=== PATIENT | female | born 1970 | race African-American/Black ===

== ENCOUNTER 2016-09-23 19:59 | Emergency (ER) | payer OTHER ==
[2016-09-23 20:09] VITALS: TEMP 98.6; BMI 33.6
--- NOTE | 2016-09-23 20:18 | PDOC ---
History of Present Illness - General Chief Complaint: Allergic Reaction Stated Complaint: ALLERGIC REACTION Time Seen by Provider: 09/23/16 20:14 Past History - Past Medical History Allergies/Adverse Reactions: Allergies Allergy/AdvReac Type Severity Reaction Status Date / Time sulfamethoxazole Allergy Swelling Verified 09/23/16 20:09 [From Bactrim] tomato [Tomato] Allergy Verified 09/23/16 20:09 trimethoprim [From Bactrim] Allergy Swelling Verified 09/23/16 20:09 wheat Allergy Swelling Verified 09/23/16 20:09 ALL FRUITS Allergy Swelling Uncoded 09/23/16 20:09 LETTUCE Allergy Uncoded 09/23/16 20:09 Home Medications: Ambulatory Orders Levothyroxine [Synthroid] 88 mcg PO DAILY 02/13/12 Methotrexate Sodium [Methotrexate] 2.5 mg PO WEEKLY 02/13/12 Folic Acid - 1 mg PO DAILY 11/04/12 Nabumetone 750 mg PO BID 11/04/12 Tramadol HCl/APAP 37.5/325Mg [Ultracet 37.5/325Mg Tablet] 1 combo PO PRN Etanercept [Enbrel] 50 mg SQ WEEKLY 11/28/14 Loratadine [Claritin -] 10 mg PO DAILY PRN 11/29/14 Ibuprofen [Motrin -] 800 mg PO Q6H #30 tablet 01/15/16 Asthma: Yes Cardiac Disorders: Yes (right lower extremity DVT in 2007 and 2009, 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) CVA: No CHF: No DVT: Yes Dementia: No Diabetes: No GI Disorders: No Disorders: No HTN: No Hypercholesterolemia: No Liver Disease: No Seizures: No Thyroid Disease: Yes (hypo) - Surgical History Abdominal Surgery: Yes (tubal ligation) - Psycho/Social/Smoking Cessation Hx Anxiety: No Suicidal Ideation: No Smoking Status: No Smoking History: Never smoked Have you smoked in the past 12 months: No Number of Cigarettes Smoked Daily: 0 Hx Alcohol Use: No Drug/Substance Use Hx: No Substance Use Type: None *Physical Exam - Vital Signs Last Vital Signs Temp Pulse Resp BP Pulse Ox 98.6 F 77 18 154/82 99 09/23/16 20:06 09/23/16 20:06 09/23/16 20:06 09/23/16 20:06 09/23/16 20:06
--- NOTE | 2016-09-23 20:18 | PDOC ---
History of Present Illness - History of Present Illness Initial Comments: 09/23/16 20:48 The patient is a 46 year old female with a past medical hx of RA, asthma, hypothyroidism who presents to the ED for evaluation of an allergic reaction this evening. The patient states she ate fruit and started to have an allergic reaction. She reports an itchy rash all over her body. She states she took 2 Benadryl before coming to the ED. The patient denies SOB, wheezing, cough, vomiting, nausea Allergies: All fruits <Carmina Fuentes - Last Filed: 09/23/16 21:01> <Idalmis López - Last Filed: 09/23/16 21:29> - General Chief Complaint: Allergic Reaction Stated Complaint: ALLERGIC REACTION Time Seen by Provider: 09/23/16 20:14 Past History <Carmina Fuentes - Last Filed: 09/23/16 21:01> - Past Medical History Asthma: Yes Cardiac Disorders: Yes (right lower extremity DVT in 2007 and 2009, 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) CVA: No CHF: No DVT: Yes Dementia: No Diabetes: No GI Disorders: No Disorders: No HTN: No Hypercholesterolemia: No Liver Disease: No Seizures: No Thyroid Disease: Yes (hypo) - Surgical History Abdominal Surgery: Yes (tubal ligation) - Psycho/Social/Smoking Cessation Hx Anxiety: No Suicidal Ideation: No Smoking Status: No Smoking History: Never smoked Have you smoked in the past 12 months: No Number of Cigarettes Smoked Daily: 0 Hx Alcohol Use: No Drug/Substance Use Hx: No Substance Use Type: None <Idalmis López - Last Filed: 09/23/16 21:29> - Past Medical History Allergies/Adverse Reactions: Allergies Allergy/AdvReac Type Severity Reaction Status Date / Time sulfamethoxazole Allergy Swelling Verified 09/23/16 20:09 [From Bactrim] tomato [Tomato] Allergy Verified 09/23/16 20:09 trimethoprim [From Bactrim] Allergy Swelling Verified 09/23/16 20:09 wheat Allergy Swelling Verified 09/23/16 20:09 ALL FRUITS Allergy Swelling Uncoded 09/23/16 20:09 LETTUCE Allergy Uncoded 09/23/16 20:09 Home Medications: Ambulatory Orders Levothyroxine [Synthroid] 88 mcg PO DAILY 02/13/12 Methotrexate Sodium [Methotrexate] 2.5 mg PO WEEKLY 02/13/12 Folic Acid - 1 mg PO DAILY 11/04/12 Nabumetone 750 mg PO BID 11/04/12 Tramadol HCl/APAP 37.5/325Mg [Ultracet 37.5/325Mg Tablet] 1 combo PO PRN Etanercept [Enbrel] 50 mg SQ WEEKLY 11/28/14 Loratadine [Claritin -] 10 mg PO DAILY PRN 11/29/14 Ibuprofen [Motrin -] 800 mg PO Q6H #30 tablet 01/15/16 Review of Systems - Review of Systems Able to Perform ROS?: Yes Comments:: 09/23/16 20:50 CONSTITUTIONAL: Absent: fever, no chills, no fatigue EYES: Absent: visual changes ENT: Absent: ear pain, no sore throat CARDIOVASCULAR: Absent: chest pain, no palpitations RESPIRATORY: Absent: cough, no SOB GI: Absent: abdominal pain, no nausea, no vomiting, no constipation, no diarrhea GENITOURINARY: Absent: dysuria, no frequency, no hematuria MUSCULOSKELETAL: Absent: back pain, no arthralgia, no myalgia SKIN: +Itchy rash NEURO: Absent: headache <Carmina Fuentes - Last Filed: 09/23/16 21:01> *Physical Exam - Vital Signs Last Vital Signs Temp Pulse Resp BP Pulse Ox 98.6 F 77 18 154/82 99 09/23/16 20:06 09/23/16 20:06 09/23/16 20:06 09/23/16 20:06 09/23/16 20:06 - Physical Exam Comments: 09/23/16 20:50 GENERAL: Well-appearing, well-nourished. No apparent distress. HEENT: Uvula midline. Normocephalic, atraumatic. PERRL, EOM intact. CARDIOVASCULAR: Normal S1, S2. Regular rate and rhythm. PULMONARY: No wheezing. Clear to auscultation bilaterally. ABDOMEN: Soft, non-distended, non-tender. EXTREMITIES: Normal ROM in all four extremities. No gross deformities. SKIN: +Hives to face and extremities. Warm, dry. NEUROLOGICAL: No focal neurological deficits. <Carmina Fuentes - Last Filed: 09/23/16 21:01> - Vital Signs Last Vital Signs Temp Pulse Resp BP Pulse Ox 98.6 F 77 18 154/82 99 09/23/16 20:06 09/23/16 20:06 09/23/16 20:06 09/23/16 20:06 09/23/16 20:06 <Idalmis López - Last Filed: 09/23/16 21:29> ED Treatment Course - Medications Given in the ED: ED Medications Discontinued Medications Generic Name Dose Route Start Last Admin Trade Name Ezequiel PRN Reason Stop Dose Admin Diphenhydramine HCl 25 mg 09/23/16 20:20 09/23/16 20:46 Benadryl Injection - IVPUSH 09/23/16 20:21 25 mg ONCE ONE Administration Famotidine/Sodium Chloride 50 mls @ 100 mls/hr 09/23/16 20:19 09/23/16 20:46 Pepcid 20 Mg Premixed Ivpb - IVPB 09/23/16 20:48 100 mls/hr ONCE ONE Administration Methylprednisolone Sodium Succinate 125 mg 09/23/16 20:19 09/23/16 20:46 Solu-Medrol - IVPB 09/23/16 20:20 125 mg ONCE ONE Administration <Carmina Fuentes - Last Filed: 09/23/16 21:01> Medical Decision Making - Medical Decision Making 09/23/16 21:24 46-year-old female with a history of allergies had wheezes today and developed itching to her torso, face and extremities -She has no focal neural deficits. She has no wheezing. She has no oropharynx edema. The uvula is midline. Patient received IV Benadryl, IV steroids Symptoms improved Patient states that she does have an EpiPen at home and does not need another prescription Impression food allergies, hives <Idalmis López - Last Filed: 09/23/16 21:29> *DC/Admit/Observation/Transfer - Attestations Scribe Attestion: 09/23/16 20:51 Documentation prepared by Carmina Fuentes, acting as medical videographer for Idalmis López MD/DO. <Carmina Fuentes - Last Filed: 09/23/16 21:01> <Idalmis López - Last Filed: 09/23/16 21:29> Diagnosis at time of Disposition: Drug allergy - Discharge Dispostion Disposition: HOME Condition at time of disposition: Stable - Referrals Referrals: Haydee Gilmore MD [Primary Care Provider] - - Patient Instructions Printed Discharge Instructions: DI for Food Allergy Additional Instructions: Please avoid fruit If you ever experience difficulty breathing after exposure to foods-inject your epi pen Return to the ER if you have any recurrent symptoms
[2016-09-23] MEDS ORDERED: FAMOTIDINE 20 MG/50 ML IVPB 50 ML IVPB ONE ×2 (20:19→20:37)
[2016-09-23] MEDS ORDERED: methylPREDNISolone NA SUCC 125 MG/2 ML VIAL IVPB ONE (20:19)
[2016-09-23] MEDS ORDERED: methylPREDNISolone NA SUCC 125 MG/2 ML VIAL ONE ×2 (20:37→20:38)
[2016-09-23 22:00] VITALS: BP 145/76; PULSE 72
== END 2016-09-23 22:01 | disposition home or self-care (01) ==
LOC: JER 19:59
PROC: 3E033GC Introduction of Other Therapeutic Substance into Peripheral Vein, Percutaneous Approach (ICD-10-PCS; principal; 2016-09-23)
PROC: 3E0333Z Introduction of Anti-inflammatory into Peripheral Vein, Percutaneous Approach (ICD-10-PCS; 2016-09-23)
PROC: 3E033GC Introduction of Other Therapeutic Substance into Peripheral Vein, Percutaneous Approach (ICD-10-PCS; 2016-09-23)
DX: L27.2 Dermatitis due to ingested food (principal); T78.1XXA Other adverse food reactions, not elsewhere classified, initial encounter; M06.9 Rheumatoid arthritis, unspecified; J45.909 Unspecified asthma, uncomplicated; E03.9 Hypothyroidism, unspecified; Z86.718 Personal history of other venous thrombosis and embolism
CPT/HCPCS: 96365; 96375; 99283-25

== ENCOUNTER 2017-08-04 09:09 | Emergency (ER) | payer OTHER ==
[2017-08-04 09:16] VITALS: TEMP 98.4; BMI 32.4
[2017-08-04] MEDS ORDERED: SODIUM CHLORIDE 1,000 ML IV STA (09:53)
[2017-08-04] MEDS ORDERED: ONDANSETRON 4 MG/2 ML VIAL ONE (09:53)
[2017-08-04] MEDS ORDERED: ONDANSETRON 4 MG/2 ML VIAL IVPUSH ONE (09:53)
[2017-08-04] MEDS ORDERED: ACETAMINOPHEN 1000 MG/100 ML VIAL (NON FORMULARY) IVPB ONE (09:53)
[2017-08-04] MEDS ORDERED: ACETAMINOPHEN INJECTION 100 ML IVPB ONE (09:53)
[2017-08-04 10:29] LABS: HCG,QUALITATIVE URINE NEGATIVE
[2017-08-04 10:38] LABS: ALBUMIN 3.3 g/dl (3.4-5.0); ALK PHOS 76 U/L (45-117); ANION GAP 7 (8-16); BILIRUBIN,TOTAL 0.4 mg/dL (0.2-1.0); BLOOD UREA NITROGEN 5 mg/dL (7-18); CALCIUM 8.2 mg/dL (8.5-10.1); CHLORIDE 105 mmol/L (98-107); CO2 26 mmol/L (21-32); CREATININE 0.8 mg/dL (0.55-1.02); GLUCOSE,RANDOM 86 mg/dL (74-106); LIPASE 65 U/L (73-393); MAGNESIUM 2.1 mg/dL (1.8-2.4); POTASSIUM 3.8 mmol/L (3.5-5.1); SGOT/AST 24 U/L (15-37); SGPT/ALT 27 U/L (12-78); SODIUM 138 mmol/L (136-145); TOT PROT 7.2 g/dl (6.4-8.2)
--- NOTE | 2017-08-04 10:45 | PDOC ---
History of Present Illness - General Chief Complaint: Headache Stated Complaint: HEADACHE Time Seen by Provider: 08/04/17 09:25 History Source: Patient Exam Limitations: No Limitations - History of Present Illness Travel History: No Initial Comments: 08/04/17 10:00 47 year old female presents to the ED with complaints of nausea vomiting and generalized abdominal cramping for the past 2 days. Patient states at work there was an outbreak of similar symptoms involving the staff and patients. Patient states at work started to vomit and since then has had poor appetite, generalized weakness and now has developed a generalized headache which she describes a throbbing sensation. Patient denies visual changes, fever but states that have chills yesterday. Patient states has had no diarrhea, change in urine pattern, rash, or dizziness. Timing/Duration: reports: changing over time Quality: reports: moderate Abdominal Pain Onset Location: reports: generalized abdomen Pain Radiation: reports: no radiation Aggravating Factors: improves with: Eating Alleviating Factors: improves with: Vomiting Past History - Travel Traveled outside of the country in the last 30 days: No - Past Medical History Allergies/Adverse Reactions: Allergies Allergy/AdvReac Type Severity Reaction Status Date / Time sulfamethoxazole Allergy Swelling Verified 08/04/17 09:11 [From Bactrim] tomato [Tomato] Allergy Verified 08/04/17 09:11 trimethoprim [From Bactrim] Allergy Swelling Verified 08/04/17 09:11 wheat Allergy Swelling Verified 08/04/17 09:11 ALL FRUITS Allergy Swelling Uncoded 08/04/17 09:11 LETTUCE Allergy Uncoded 08/04/17 09:11 Home Medications: Ambulatory Orders Levothyroxine [Synthroid] 100 mcg PO DAILY 02/13/12 Methotrexate Sodium [Methotrexate] 10 mg PO WEEKLY 02/13/12 Folic Acid - 1 mg PO DAILY 11/04/12 Etanercept [Enbrel] 50 mg SQ WEEKLY 11/28/14 Loratadine [Claritin -] 10 mg PO DAILY PRN 11/29/14 Ibuprofen [Motrin -] 800 mg PO Q6H #30 tablet 01/15/16 Asthma: Yes Cardiac Disorders: Yes (right lower extremity DVT in 2007 and 2009, V. 2010 DVT associated with pre) CVA: No COPD: No CHF: No DVT: Yes Dementia: No Diabetes: No GI Disorders: No Disorders: No HTN: No Hypercholesterolemia: No Liver Disease: No Seizures: No Thyroid Disease: Yes (hypo) Other medical history: R.A - Surgical History Abdominal Surgery: Yes (tubal ligation) - Suicide/Smoking/Psychosocial Hx Smoking Status: No Smoking History: Never smoked Have you smoked in the past 12 months: No Number of Cigarettes Smoked Daily: 0 Information on smoking cessation initiated: No Hx Alcohol Use: No Drug/Substance Use Hx: No Substance Use Type: None Patient Lives Alone: No Review of Systems - Review of Systems Able to Perform ROS?: Yes Constitutional: Yes: Chills, Weakness HEENTM: No: Symptoms Reported Respiratory: No: Symptoms reported Cardiac (ROS): No: Symptoms Reported ABD/GI: Yes: Nausea, Poor Appetite, Poor Fluid Intake, Vomiting, Abdominal cramping : No: Symptoms Reported Musculoskeletal: No: Symptoms Reported Integumentary: No: Symptoms Reported Neurological: Yes: Headache *Physical Exam - Vital Signs Last Vital Signs Temp Pulse Resp BP Pulse Ox 98.4 F 67 18 130/84 100 08/04/17 09:13 08/04/17 09:13 08/04/17 09:13 08/04/17 09:13 08/04/17 09:13 - Physical Exam General Appearance: Yes: Nourished, Appropriately Dressed. No: Apparent Distress HEENT: positive: EOMI, GEMMA, TMs Normal, Pharynx Normal. negative: Pale Conjunctivae Neck: positive: Supple Respiratory/Chest: positive: Lungs Clear, Normal Breath Sounds. negative: Respiratory Distress, Accessory Muscle Use Cardiovascular: positive: Regular Rhythm, Regular Rate. negative: Murmur Gastrointestinal/Abdominal: positive: Soft, Tenderness (mild epigastric. no right upper quadrant or lower quadrant involvement) Extremity: positive: Normal Capillary Refill Integumentary: positive: Normal Color, Warm, Moist Neurologic: positive: Normal Mood/Affect, Motor Strength 5/5 (ambulatory) ED Treatment Course - LABORATORY CBC & Chemistry Diagram: 08/04/17 10:03 08/04/17 10:03 - ADDITIONAL ORDERS Additional order review: Laboratory Results 08/04/17 10:03 Urine HCG, Qual Negative - Medications Given in the ED: ED Medications Discontinued Medications Generic Name Dose Route Start Last Admin Trade Name Freq PRN Reason Stop Dose Admin Acetaminophen 1,000 mg 08/04/17 09:53 08/04/17 10:03 Ofirmev Injection - IVPB 08/04/17 09:54 1,000 mg ONCE ONE Administration Ondansetron HCl 4 mg 08/04/17 09:53 08/04/17 10:03 Zofran Injection IVPUSH 08/04/17 09:54 4 mg ONCE ONE Administration Medical Decision Making - Medical Decision Making 08/04/17 10:00 Patient with GI complaints including subjective chills along with a headache 2 days. Patient states poor by mouth intake and generalized weakness. Patient ordered for labs including CBC, comp, mag, lipase, urinalysis, urine , IV Zofran, IV Tylenol along with IV fluids. DD: gastroenteritis, gastritis, cholecystitis, UTI, 08/04/17 11:33 Laboratory Tests 08/04/17 08/04/17 08/04/17 10:03 10:03 10:03 WBC 2.3 L D Hgb 13.3 D Hct 40.8 Plt Count 166 D Neutrophils % 54.5 D Sodium 138 Potassium 3.8 Chloride 105 Carbon Dioxide 26 Anion Gap 7 L BUN 5 L Creatinine 0.8 Random Glucose 86 Calcium 8.2 L Magnesium 2.1 AST 24 ALT 27 Lipase 65 L Urine Ketones Negative Urine Blood 2+ H Urine HCG, Qual Negative patient states feeling better. Pt to be discharged home with Zofran, recommending to follow a bland diet for the next few days. *DC/Admit/Observation/Transfer Diagnosis at time of Disposition: Nausea & vomiting - Discharge Dispostion Disposition: HOME Condition at time of disposition: Improved - Referrals - Patient Instructions Printed Discharge Instructions: DI for Vomiting -- Adult Additional Instructions: Please follow a bland diet x 2 days and advance as you can tolerate. Take Zofran as needed for nausea. Return to ED if symptoms worsen. Otherwise follow up with your PMD - Post Discharge Activity
[2017-08-04 10:52] LABS: URINE APPEARANCE CLEAR; URINE BILIRUBIN NEGATIVE (NEGATIVE); URINE BLOOD 2+ (NEGATIVE); URINE COLOR STRAW; URINE GLUCOSE (UA) NEGATIVE (NEGATIVE); URINE KETONE NEGATIVE (NEGATIVE); URINE LEUK ESTERASE NEGATIVE (NEGATIVE); URINE NITRITE NEGATIVE (NEGATIVE); URINE PROTEIN NEGATIVE (NEGATIVE); URINE UROBILINOGEN NEGATIVE mg/dL (0.2-1.0)
[2017-08-04 11:07] LABS: BASO % 0.2 % (0-2.0); HEMATOCRIT 40.8 % (32.4-45.2); HEMOGLOBIN 13.3 GM/dL (10.7-15.3); LYMPH % 33.2 % (8-40); MCH 29.1 pg (25.7-33.7); MCHC 32.7 g/dl (32.0-36.0); MEAN CELL VOLUME 88.9 fl (80-96); MEAN PLT VOLUME 9.8 fl (7.5-11.1); MONO % 9.1 % (3.8-10.2); NEUT % 54.5 % (42.8-82.8); PLATELET COUNT 166 K/MM3 (134-434); RBC 4.58 M/mm3 (3.60-5.2); RDW 13.8 % (11.6-15.6); WHITE BLOOD COUNT 2.3 K/mm3 (4.0-10.0)
[2017-08-04 11:09] LABS: EPI CELLS RARE /HPF (FEW)
[2017-08-04 11:45] VITALS: BP 117/55; PULSE 58
== END 2017-08-04 11:45 | disposition home or self-care (01) ==
LOC: JER 09:09
PROC: 3E033NZ Introduction of Analgesics, Hypnotics, Sedatives into Peripheral Vein, Percutaneous Approach (ICD-10-PCS; principal; 2017-08-04)
PROC: 3E033GC Introduction of Other Therapeutic Substance into Peripheral Vein, Percutaneous Approach (ICD-10-PCS; 2017-08-04)
DX: R11.2 Nausea with vomiting, unspecified (principal); J45.909 Unspecified asthma, uncomplicated; E03.9 Hypothyroidism, unspecified; M06.9 Rheumatoid arthritis, unspecified; Z86.718 Personal history of other venous thrombosis and embolism
CPT/HCPCS: 36415; 80053; 81003; 81015; 83690; 83735; 84703; 85025; 96374; 96375; 99283-25

== ENCOUNTER 2021-01-18 12:29 | Emergency (ER) | payer OTHER ==
[2021-01-18 12:42] VITALS: BP 158/100; PULSE 69; BMI 31.8
[2021-01-18] MEDS ORDERED: CEFTRIAXONE 500 MG in DEXTROSE 5%-WATER - 50 ML IVPB ONE (13:19)
[2021-01-18] MEDS ORDERED: AZITHROMYCIN 500 MG TABLET PO ONE (13:19)
[2021-01-18] MEDS ORDERED: AZITHROMYCIN 250 MG TABLET ONE (13:25)
[2021-01-18 13:38] LABS: HCG,QUALITATIVE URINE Negative
[2021-01-18 13:44] LABS: EPI CELLS 29 /uL (0-25.1); HYALINE CASTS 1 /uL (0-3.1); URINE APPEARANCE CLEAR; URINE BACTERIA 362 /uL (0-1359); URINE BILIRUBIN NEGATIVE (NEGATIVE); URINE COLOR YELLOW; URINE GLUCOSE (UA) NEGATIVE (NEGATIVE); URINE KETONE NEGATIVE (NEGATIVE); URINE LEUK ESTERASE 2+ (NEGATIVE); URINE NITRITE NEGATIVE (NEGATIVE); URINE PROTEIN NEGATIVE (NEGATIVE); URINE RBC 8 /uL (0-23.9); URINE UROBILINOGEN 0.2 mg/dL (0.2-1.0); URINE WBC 34 /uL (0-25.8)
== END 2021-01-18 14:03 | disposition home or self-care (01) ==
LOC: JER 12:29 → JERFT 12:29
DX: N76.0 Acute vaginitis (principal); M54.5 Low back pain
CPT/HCPCS: 36415; 81003; 84703; 87070; 87086; 87205; 87491; 87591; 87661; 99284-25

== ENCOUNTER 2021-11-26 07:26 | Emergency (ER) | payer OTHER ==
[2021-11-26 07:43] VITALS: BMI 34.5
[2021-11-26] MEDS ORDERED: ACETAMINOPHEN 325 MG TABLET (FP) PO ONE (07:59)
[2021-11-26] MEDS ORDERED: ACETAMINOPHEN 325 MG TABLET (FP) ONE (08:01)
[2021-11-26 10:22] VITALS: BP 128/86; PULSE 50; TEMP 97.5
== END 2021-11-26 10:25 | disposition home or self-care (01) ==
LOC: JER 07:26
DX: M79.605 Pain in left leg (principal)
CPT/HCPCS: 93971-TC; 99284-25

== ENCOUNTER 2022-03-29 22:16 | Emergency (ER) | payer OTHER ==
[2022-03-29 22:32] VITALS: BP 151/96; PULSE 72; RESP 18; TEMP 98.2; BMI 32.5
[2022-03-29] MEDS ORDERED: ACETAMINOPHEN 500 MG TABLET (FP) PO ONE (23:15)
[2022-03-29] MEDS ORDERED: KETOROLAC TROMETHAMINE 30 MG/1 ML VIAL IM ONE (23:16)
[2022-03-29] MEDS ORDERED: KETOROLAC TROMETHAMINE 30 MG/1 ML VIAL ONE (23:23)
[2022-03-29] MEDS ORDERED: ACETAMINOPHEN 325 MG TABLET (FP) ONE (23:23)
== END 2022-03-30 01:32 | disposition home or self-care (01) ==
LOC: JER 22:16
PROC: 3E023GC Introduction of Other Therapeutic Substance into Muscle, Percutaneous Approach (ICD-10-PCS; principal; 2022-03-29)
DX: M79.671 Pain in right foot (principal)
CPT/HCPCS: 73610-TC-RT-FY; 73630-TC-RT-FY; 93971-TC; 99284-25

== ENCOUNTER 2022-06-13 10:47 | Emergency (ER) | payer OTHER ==
[2022-06-13 10:53] VITALS: BP 159/96; PULSE 70; RESP 18; TEMP 99.1; BMI 42.9
[2022-06-13 12:41] LABS: EPI CELLS 11 /uL (0-25.1); HYALINE CASTS 0 /uL (0-3.1); PH,URINE 5.5 (5.0-8.0); URINE APPEARANCE CLOUDY; URINE BACTERIA >9,000 /uL (0-1359); URINE BILIRUBIN NEGATIVE (NEGATIVE); URINE COLOR YELLOW; URINE GLUCOSE (UA) NEGATIVE (NEGATIVE); URINE KETONE NEGATIVE (NEGATIVE); URINE LEUK ESTERASE 2+ (NEGATIVE); URINE NITRITE NEGATIVE (NEGATIVE); URINE PROTEIN TRACE (NEGATIVE); URINE RBC 1955 /uL (0-23.9); URINE UROBILINOGEN 0.2 mg/dL (0.2-1.0); URINE WBC 1086 /uL (0-25.8)
== END 2022-06-13 15:07 | disposition home or self-care (01) ==
LOC: JERFT 10:47
DX: N30.01 Acute cystitis with hematuria (principal)
CPT/HCPCS: 81003; 84703; 87086; 87186; 99283-25

== ENCOUNTER 2023-01-05 17:04 | Emergency (ER) | payer OTHER ==
[2023-01-05 17:36] VITALS: BP 135/71; PULSE 74; RESP 14; TEMP 98.5; BMI 36.1
[2023-01-05] MEDS ORDERED: CYCLOBENZAPRINE HCL 10 MG TABLET (FP) PO ONE (19:43)
[2023-01-05] MEDS ORDERED: IBUPROFEN 600 MG TABLET (FP) PO ONE ×2 (19:43→19:44)
[2023-01-05] MEDS ORDERED: ACETAMINOPHEN 500 MG TABLET (FP) PO ONE (19:43)
[2023-01-05] MEDS ORDERED: CYCLOBENZAPRINE HCL 10 MG TABLET (FP) ONE (19:44)
[2023-01-05] MEDS ORDERED: ACETAMINOPHEN 500 MG TABLET (FP) ONE (19:45)
== END 2023-01-05 20:27 | disposition home or self-care (01) ==
LOC: JERFT 17:04
DX: M79.642 Pain in left hand (principal); R22.32 Localized swelling, mass and lump, left upper limb; M25.552 Pain in left hip; M79.601 Pain in right arm; M25.532 Pain in left wrist; V03.00XA Pedestrian on foot injured in collision with car, pick-up truck or van in nontraffic accident, initial encounter; Y93.01 Activity, walking, marching and hiking; Y92.480 Sidewalk as the place of occurrence of the external cause
CPT/HCPCS: 73110-TC-LT-FY; 73130-TC-LT-FY; 73502-TC-LT-FY; 99284-25

== ENCOUNTER 2023-03-26 18:59 | Emergency (ER) | payer OTHER ==
[2023-03-26 19:08] VITALS: BP 162/94; PULSE 67; RESP 16; TEMP 98.2; BMI 33.6
== END 2023-03-26 21:02 | disposition home or self-care (01) ==
LOC: JER 18:59
DX: R22.41 Localized swelling, mass and lump, right lower limb (principal)
CPT/HCPCS: 93971-TC; 99284-25

== ENCOUNTER 2024-01-26 04:11 | Inpatient (IN) | payer OTHER ==
[2024-01-22 11:49] VITALS: BMI 35.4
[2024-01-26] MEDS ORDERED: DEXAMETHASONE SOD PHOSPHATE 4 MG/1 ML VIAL ONE (08:27)
[2024-01-26] MEDS ORDERED: ONDANSETRON 4 MG/2 ML VIAL ONE (08:27)
[2024-01-26] MEDS ORDERED: SUCCINYLCHOLINE CHLORIDE 200 MG/10 ML SYRINGE ONE (08:28)
[2024-01-26] MEDS ORDERED: ROCURONIUM BROMIDE 50 MG/5 ML SYRINGE ONE (08:28)
[2024-01-26] MEDS ORDERED: MIDAZOLAM HCL 2 MG/2 ML SINGLE DOSE VIAL ONE (08:28)
[2024-01-26] MEDS ORDERED: oxyCODONE HCL 5 MG TABLET PO PRN (09:07)
[2024-01-26] MEDS ORDERED: ONDANSETRON 4 MG/2 ML VIAL IVPUSH PRN ×2 (09:07→11:27)
[2024-01-26] MEDS ORDERED: LACTATED RINGERS SOLUTION 1,000 ML IV SCH (09:15)
[2024-01-26] MEDS: ceFAZolin SODIUM 1 GM VIAL IVPB ONE (09:48)
[2024-01-26] MEDS ORDERED: BENZOIN/ALOE VERA/STORAX/TOLU 58 ML BOTTLE ONE (10:53)
[2024-01-26] MEDS ORDERED: PROPOFOL 60 ML ONE (10:57)
[2024-01-26] MEDS: BENZOIN 118 ML SPRAY.PUMP TP ONE (11:04)
[2024-01-26 12:37] VITALS: RESP 18
[2024-01-26] MEDS: ELECTROLYTE-148 SOLN 1,000 ML IV SCH (13:35)
[2024-01-26] MEDS: IBUPROFEN 800 MG/8 ML IJ IVPB PRN (15:09)
[2024-01-26] MEDS: CEFAZOLIN SODIUM 2 GM in DEXTROSE 5%-WATER 100 ML IVPB SCH (17:48)
[2024-01-26] MEDS: SIMETHICONE 80 MG TAB.CHEW (FP) PO PRN (20:33)
[2024-01-27] MEDS: oxyCODONE HCL 5 MG TABLET PO PRN ×2 (00:30→10:12)
[2024-01-27] MEDS: amLODIPine BESYLATE 10 MG TABLET (FP) PO ONE (00:56)
[2024-01-27] MEDS: amLODIPine BESYLATE 10 MG TABLET (FP) PO SCH (01:01)
[2024-01-27] MEDS: ACETAMINOPHEN 1000 MG/100 ML BAG IVPB PRN (02:12)
[2024-01-27] MEDS: LEVOTHYROXINE NA 100 MCG TABLET (FP) PO SCH (06:25)
[2024-01-27 06:53] LABS: HEMATOCRIT 38.2 % (32.4-45.2); HEMOGLOBIN 12.9 GM/dL (10.7-15.3); MCH 30.8 pg (25.7-33.7); MCHC 33.6 g/dl (32.0-36.0); MEAN CELL VOLUME 91.7 fl (80-96); MEAN PLT VOLUME 8.3 fl (7.5-11.1); PLATELET COUNT 239 10^3/uL (134-434); RBC 4.17 M/mm3 (3.60-5.2); RDW 14.6 % (11.6-15.6); WHITE BLOOD COUNT 12.8 K/mm3 (4.0-10.0)
[2024-01-27 07:09] LABS: POTASSIUM 4.3 mmol/L (3.5-5.1)
[2024-01-27 07:15] LABS: BLOOD UREA NITROGEN 8.3 mg/dL (7-18)
[2024-01-27 07:16] LABS: CALCIUM 8.5 mg/dL (8.5-10.1)
[2024-01-27 07:18] LABS: CREATININE 0.7 mg/dL (0.55-1.3)
[2024-01-27] MEDS ORDERED: METHOTREXATE 2.5 MG TABLET PO SCH (08:00)
[2024-01-27 08:54] LABS: ANISOCYTOSIS 0; HELMET CELLS 0; HOWELL-JOLLY BODIES 0; MACROCYTOSIS 0; OVALOCYTE 0; ROULEAU 0; SICKELED CELLS 0; TARGET CELLS 0; TEAR DROP CELLS 0; TOXIC GRANULATION 0
[2024-01-27] MEDS: ENOXAPARIN NA (PORCINE) 40 MG/0.4 ML DISP.SYRIN SQ SCH (09:37)
[2024-01-27] MEDS: LISINOPRIL 20 MG TABLET PO SCH (09:38)
[2024-01-27] MEDS: BISACODYL 10 MG SUPP.RECT PR PRN (15:38)
[2024-01-27] MEDS: IBUPROFEN 600 MG TABLET (FP) PO PRN (15:38)
[2024-01-27] MEDS: DOCUSATE SODIUM 100 MG CAPSULE (FP) PO PRN (19:33)
[2024-01-28 06:13] VITALS: TEMP 98.5
[2024-01-28 08:57] VITALS: BP 110/76; PULSE 62
[2024-01-28] MEDS: amLODIPine BESYLATE 10 MG TABLET (FP) PO SCH (09:36)
== END 2024-01-28 12:50 | disposition home or self-care (01) | DRG 519 ==
LOC: J2C 04:11 → J3W 13:50
PROVIDERS: ADMIT Obstetrics & Gynecology; ATTEND Obstetrics & Gynecology
PROC: 0UT70ZZ Resection of Bilateral Fallopian Tubes, Open Approach (ICD-10-PCS; 2024-01-26)
PROC: 0UT20ZZ Resection of Bilateral Ovaries, Open Approach (ICD-10-PCS; 2024-01-26)
PROC: 0UT90ZL Resection of Uterus, Supracervical, Open Approach (ICD-10-PCS; principal; 2024-01-26 09:00)
DX: D25.9 Leiomyoma of uterus, unspecified (principal); R10.2 Pelvic and perineal pain; N73.6 Female pelvic peritoneal adhesions (postinfective); E66.9 Obesity, unspecified; Z68.35 Body mass index [BMI] 35.0-35.9, adult
CPT/HCPCS: 36415; 80048; 81025; 85025; 86850; 86900; 86901; 88307-TC; 94010; 94760; J0131